=== PATIENT | male | born 1955 ===

== ENCOUNTER 2018-02-28 16:24 | Emergency (ER) | payer OTHER ==
[2018-02-28] MEDS: IV NORMAL SALINE 1000ML BAG 1,000 ML IV (17:21)
[2018-02-28] MEDS: ONDANSETRON PF 4 MG/2 ML VIAL. IV (17:23)
[2018-02-28 17:34] LABS: ETHANOL < 10 mg/dL (0-10); LIPASE 81 U/L (73-393)
[2018-02-28 17:34] LABS: ANION GAP 14 (6-14); BLOOD UREA NITROGEN 12 mg/dL (8-26); BUN/CREATININE RATIO 13 (6-20); CALCIUM 9.3 mg/dL (8.5-10.1); CARBON DIOXIDE 23 mmol/L (21-32); CHLORIDE 88 mmol/L (98-107); CREATININE 0.9 mg/dL (0.7-1.3); GFR 85.5; GLUCOSE 103 mg/dL (70-99); SODIUM 125 mmol/L (136-145)
[2018-02-28 17:41] LABS: ALBUMIN 4.2 g/dL (3.4-5.0); ALBUMIN/GLOBULIN RATIO 1.3 (1.0-1.7); ALK PHOS 97 U/L (46-116); ALT (SGPT) 42 U/L (16-63); AST (SGOT) 60 U/L (15-37); TOTAL BILIRUBIN 1.2 mg/dL (0.2-1.0); TOTAL PROTEIN 7.4 g/dL (6.4-8.2)
[2018-02-28 17:43] LABS: TROPONINI < 0.017 ng/mL (0.000-0.055)
[2018-02-28] MEDS ORDERED: CONTRAST GIVEN. MC (18:00)
[2018-02-28] MEDS: IOHEXOL 300 MG/ML 100ML VIAL. IV (18:03)
[2018-02-28 18:10] LABS: MAGNESIUM 1.7 mg/dL (1.8-2.4)
[2018-02-28] MEDS: MULTIVIT INFUSN,ADULT 4,VIT K 10 ML, THIAMINE 100 MG, FOLIC ACID 1 MG in IV NORMAL SALI... IV (18:47)
[2018-02-28 18:56] LABS: ADD MAN DIFF? NO; BILIRUBIN,URINE NEGATIVE (NEG); CLARITY,URINE CLEAR; COLOR,URINE YELLOW; GLUCOSE,URINE NEGATIVE (NEG); NITRITE,URINE NEGATIVE (NEG); PROTEIN,URINE NEGATIVE (NEG-TRACE); UROBILINOGEN,URINE 0.2 mg/dL (0.2 mg/dL)
[2018-02-28 18:58] LABS: BASO % 1 % (0-3); EOS % 0 % (0-3); HEMATOCRIT 39.6 % (39.0-53.0); HEMOGLOBIN 13.8 g/dL (13.0-17.5); LYMPH # 0.8 x10^3/uL (1.0-4.8); LYMPH % 17 % (24-48); MEAN CORPUSCULAR HEMOGLOBIN 32 pg (25-35); MEAN CORPUSCULAR HGB CONC 35 g/dL (31-37); MEAN CORPUSCULAR VOLUME 91 fL (79-100); MONO # 0.4 x10^3/uL (0.0-1.1); MONO % 9 % (0-9); NEUT # 3.5 x10^3uL (1.8-7.7); NEUT % 74 % (31-73); PLATELET COUNT 220 x10^3/uL (140-400); RED BLOOD COUNT 4.36 x10^6/uL (4.30-5.70); RED CELL DISTRIBUTION WIDTH 12.8 % (11.5-14.5); WHITE BLOOD COUNT 4.7 x10^3/uL (4.0-11.0)
[2018-02-28 19:23] LABS: BACTERIA,URINE 0 /HPF (0-FEW); RBC,URINE OCC /HPF (0-2); WBC,URINE OCC /HPF (0-4)
[2018-02-28 19:24] LABS: SQUAMOUS EPITHELIAL CELL,UR OCC /LPF
== END 2018-02-28 20:46 | disposition home or self-care (01) ==
LOC: ER 16:24
DX: F10.239 Alcohol dependence with withdrawal, unspecified (principal)
CPT/HCPCS: 36415; 70450; 71045; 74177; 80053; 81001; 83690; 83735; 84484; 85025; 93005; 96361; 96365; 96375; 96376; 99285-25; G0480; J2060; J2405; J7030; Q9967

== ENCOUNTER 2018-03-24 15:34 | Emergency (ER) | payer OTHER ==
[2018-03-24] MEDS: IV NORMAL SALINE 1000ML BAG 1,000 ML IV (16:10)
[2018-03-24 16:12] LABS: ADD MAN DIFF? NO
[2018-03-24 16:17] LABS: BASO % 1 % (0-3); EOS % 0 % (0-3); HEMATOCRIT 40.5 % (39.0-53.0); LYMPH % 20 % (24-48); MEAN CORPUSCULAR HEMOGLOBIN 32 pg (25-35); MEAN CORPUSCULAR HGB CONC 35 g/dL (31-37); MEAN CORPUSCULAR VOLUME 92 fL (79-100); MONO # 0.5 x10^3/uL (0.0-1.1); MONO % 10 % (0-9); NEUT # 3.6 x10^3uL (1.8-7.7); NEUT % 69 % (31-73); PLATELET COUNT 217 x10^3/uL (140-400); RED BLOOD COUNT 4.42 x10^6/uL (4.30-5.70); RED CELL DISTRIBUTION WIDTH 12.7 % (11.5-14.5); WHITE BLOOD COUNT 5.1 x10^3/uL (4.0-11.0)
[2018-03-24 16:22] LABS: INR 1.1 (0.8-1.1); PROTHROMBIN TIME PATIENT 13.4 SEC (11.7-14.0)
[2018-03-24 16:26] LABS: ANION GAP 10 (6-14); BLOOD UREA NITROGEN 9 mg/dL (8-26); BUN/CREATININE RATIO 11 (6-20); CARBON DIOXIDE 27 mmol/L (21-32); CHLORIDE 92 mmol/L (98-107); CREATININE 0.8 mg/dL (0.7-1.3); GLUCOSE 113 mg/dL (70-99); POTASSIUM 3.8 mmol/L (3.5-5.1); SODIUM 129 mmol/L (136-145)
[2018-03-24 16:35] LABS: ALBUMIN 4.1 g/dL (3.4-5.0); ALBUMIN/GLOBULIN RATIO 1.3 (1.0-1.7); ALK PHOS 88 U/L (46-116); ALT (SGPT) 30 U/L (16-63); AST (SGOT) 25 U/L (15-37); LIPASE 148 U/L (73-393); MAGNESIUM 1.6 mg/dL (1.8-2.4); TOTAL BILIRUBIN 0.9 mg/dL (0.2-1.0); TOTAL PROTEIN 7.2 g/dL (6.4-8.2)
[2018-03-24 16:37] LABS: ETHANOL < 10 mg/dL (0-10); TROPONINI < 0.017 ng/mL (0.000-0.055)
[2018-03-24 17:36] LABS: BILIRUBIN,URINE NEGATIVE (NEG); CLARITY,URINE CLEAR; GLUCOSE,URINE NEGATIVE (NEG); NITRITE,URINE NEGATIVE (NEG); PROTEIN,URINE NEGATIVE (NEG-TRACE); UROBILINOGEN,URINE 0.2 mg/dL (0.2 mg/dL)
[2018-03-24 17:40] LABS: COLOR,URINE STRAW
[2018-03-24 17:42] LABS: BACTERIA,URINE 0 /HPF (0-FEW); RBC,URINE 0 /HPF (0-2); WBC,URINE 0 /HPF (0-4)
== END 2018-03-24 18:00 | disposition home or self-care (01) ==
LOC: ER 15:34
DX: F41.9 Anxiety disorder, unspecified (principal); R42 Dizziness and giddiness; E86.0 Dehydration; F10.10 Alcohol abuse, uncomplicated; Z98.890 Other specified postprocedural states
CPT/HCPCS: 36415; 71045; 80053; 81001; 83690; 83735; 84484; 85025; 85610; 93005; 96361; 96374; 99285-25; G0480; J2060; J7030